=== PATIENT | male | born 1990 | race Two or more races ===

== ENCOUNTER 2023-05-15 22:58 | Emergency (ER) | payer MEDICAID, OTHER ==
[~2023-05-15] VITALS: Ht 167.6 cm; Wt 113.4 kg
[2023-05-15 23:02] VITALS: BP 147/63; TEMP 98.2; O2SAT 100
== END 2023-05-16 00:22 | disposition left against medical advice (07) ==
LOC: ER 23:00
DX: S09.90XA Unspecified injury of head, initial encounter (principal); R44.0 Auditory hallucinations; R56.9 Unspecified convulsions; E11.9 Type 2 diabetes mellitus without complications; W22.8XXA Striking against or struck by other objects, initial encounter; Y93.89 Activity, other specified; Y92.89 Other specified places as the place of occurrence of the external cause; Y99.8 Other external cause status